=== PATIENT | male | born 1945 | race Caucasian/White ===

== ENCOUNTER 2020-04-05 00:14 | Inpatient (IN) | payer MEDICARE, OTHER ==
[~2020-04-05] VITALS: Ht 175.3 cm; Wt 108.3 kg
[~2020-04-05 00:14] MED LIST: DICL100T PO; FAMO-79 PO; TAMS-11 PO
[2020-04-05] MEDS ORDERED: VANCOMYCIN PER PHARMACY MC PRN (01:00)
[2020-04-05] MEDS ORDERED: ACYCLOVIR 600 MG in SODIUM CHLORIDE 0.9% 250 ML IV ONE (01:00)
[2020-04-05] MEDS ORDERED: CEFTRIAXONE PMX 2GM/50ML 50 ML IV ONE (01:00)
--- NOTE | 2020-04-05 01:11 | NUR ---
PT BIB EMS FROM [facility]. 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 PT WENT HOME AND WAS WITH HIS WHEN HE BECAME ACUTELY ALTERED. TOOK PT TO ED IN [place] AND ONCE THERE HE BECAME CONFUSED, AGITATED AND COMBATIVE. PT IS A0x0. PT HAD FEVER WELL AT [facility] AND WAS GIVEN 650 RECTAL TYLENOL. PT RECEIEVED VERSED, GEODON, KEPPRA, ATIVAN, AND HALEDOL CASH APPLICATIONS SPECIALIST. PT IS CURRENTLY IN 4 PT RESTRAINTS. RESTRAINT PAPERWORK IS BEING FILLED OUT. PT BLOOD FLOW TO EXTREMETIES IS APPROPRIATE. PT IS CONNECTED TO MONITORING EQUIPMENT.
[2020-04-05] MEDS ORDERED: CEFTRIAXONE PMX 2GM/50ML 50 ML ONE (01:16)
[2020-04-05 01:24] LABS: BASOPHILS % (AUTO) 0 % (0-1); EOSINOPHILS % (AUTO) 0 % (1-7); LYMPHOCYTES # (AUTO) 0.95 x10^3/uL (1-3.4); LYMPHOCYTES % (AUTO) 12 % (22-44); MD NO; MEAN CORPUSCULAR HEMOGLOBIN 30.4 pg (27.5-34.5); MEAN CORPUSCULAR HGB CONC 33.6 g/dL (33.2-36.2); MEAN CORPUSCULAR VOLUME 90.6 fL (81-97); MONOCYTES # (AUTO) 0.05 x10^3/uL (0.2-0.8); MONOCYTES % (AUTO) 1 % (2-9); NEUTROPHILS # (AUTO) 6.82 x10^3/uL (1.8-6.8); NEUTROPHILS % (AUTO) 87 % (42-75); PLATELET COUNT 167 x10^3/uL (130-400); RED BLOOD COUNT 4.74 x10^6/uL (4.38-5.82); RED CELL DISTRIBUTION WIDTH 13.8 % (9.4-14.8)
[2020-04-05 01:35] LABS: ALBUMIN 3.7 g/dL (3.4-5.0); ANION GAP 7 mmol/L (5-15); CALCIUM 8.8 mg/dL (8.5-10.1); CHLORIDE 107 mmol/L (98-107); CREATININE 1.07 mg/dL (0.7-1.3)
--- NOTE | 2020-04-05 01:39 | NUR ---
BLOOD CULTURES DRAWN. ABX ADMINSTERED AT THIS TIME
--- NOTE | 2020-04-05 01:43 | NUR ---
PATIENT INTUBATED WITH; 20MG ETOMIDATE, 100MG ROCC. PATIENT TOLERATED WELL. 8.0 26.5@ TEETH. BILATERAL LUNGS SOUNDS NOTED, GOOD COLOR CHANGE ON CO2. PATIENT'S VITAL SIGNS REMAIN STABLE. ADDITIONAL IV'S WILL BE PLACED.
[2020-04-05] MEDS ORDERED: ROCURONIUM 10 MG/ML,10ML IVPush ONE (02:00)
[2020-04-05] MEDS: DEXAMETHASONE 4 MG/ML, 1ML IVPush SCH ×4 (02:00→21:02)
[2020-04-05] MEDS ORDERED: PROPOFOL 100 ML IV PRN (02:00)
[2020-04-05] MEDS ORDERED: ETOMIDATE 20 MG/10 ML IVPush ONE (02:00)
[2020-04-05] MEDS ORDERED: DEXAMETHASONE 4 MG/ML, 1ML ONE (02:05)
[2020-04-05] MEDS: SODIUM CHLORIDE 0.9% 1,000 ML IV SCH ×3 (02:12→18:04)
[2020-04-05] MEDS ORDERED: CEFTRIAXONE 1,000 MG in SODIUM CHLORIDE 0.9% 50 ML IVPB SCH (02:30)
[2020-04-05] MEDS ORDERED: ACETAMINOPHEN 325 MG TABLET PO PRN (02:30)
[2020-04-05] MEDS ORDERED: ONDANSETRON 2MG/ML, 2ML IVPush PRN (02:30)
[2020-04-05] MEDS ORDERED: morphine SULFATE 10 MG/ML, 1ML IVPush PRN (02:30)
[2020-04-05] MEDS ORDERED: VANCOMYCIN PER PHARMACY MC SCH (02:30)
--- NOTE | 2020-04-05 02:50 | NUR ---
PATIENT CONTINUES TO REMAIN HYPERTENSIVE. STARTED NICARDIPINE DRIP PER SEP.
[2020-04-05] MEDS ORDERED: LACTULOSE 20 GM/30 ML UDC NG PRN (03:00)
[2020-04-05] MEDS ORDERED: PHARMACY MAY ADJ FOR RENAL FX MC SCH (03:00)
[2020-04-05] MEDS ORDERED: LIDOCAINE-MPF 1%, 2ML ENDO PRN (03:00)
--- NOTE | 2020-04-05 03:05 | NUR ---
PATIENT NOT TOLERATING PROPROFOL DECREASE IN RATE. INCREASED RATE TO IMPROVE PATIENT SEDATION OUTCOMES.
[2020-04-05] MEDS ORDERED: PHARMACOKINETIC MONITORING MC PRN (04:00)
[2020-04-05] MEDS ORDERED: VANCOMYCIN 2,500 MG in SODIUM CHLORIDE 0.9% 500 ML IV ONE (04:00)
[2020-04-05 04:15] VITALS: BP 161/89
[2020-04-05] MEDS: FAMOTIDINE 20 MG/2 ML IV SCH ×2 (04:46→14:56)
[2020-04-05] MEDS: LEVETIRACETAM 500 MG in SODIUM CHLORIDE 0.9% 100 ML IV SCH ×2 (04:46→16:24)
[2020-04-05 05:21] VITALS: BP 161/89
[2020-04-05] MEDS: PROPOFOL 100 ML IV PRN ×4 (07:15→21:14)
[2020-04-05] MEDS: ENOXAPARIN 40 MG/0.4 ML SQ SCH (07:28)
[2020-04-05] MEDS ORDERED: PROPOFOL 10 MG/ML, 100ML IV ONE (08:00)
[2020-04-05] MEDS ORDERED: ROCURONIUM 10 MG/ML,10ML ONE (08:00)
[2020-04-05] MEDS ORDERED: ETOMIDATE 20 MG/10 ML ONE (08:00)
[2020-04-05] MEDS: ACYCLOVIR IV SCH ×2 (10:51→18:04)
[2020-04-05] MEDS: SODIUM CHLORIDE 0.9% IV SCH ×2 (10:51→18:04)
[2020-04-05] MEDS ORDERED: GADOTERATE 10 MMOL/20 ML SYR ONE (12:54)
[2020-04-05] MEDS: VANCOMYCIN 2,200 MG in SODIUM CHLORIDE 0.9% 500 ML IV SCH (22:55)
[2020-04-06] MEDS: CEFTRIAXONE PMX 1GM/50ML 50 ML IV SCH (01:54)
[2020-04-06] MEDS: DEXAMETHASONE 4 MG/ML, 1ML IVPush SCH ×4 (02:07→20:09)
[2020-04-06] MEDS: SODIUM CHLORIDE 0.9% 1,000 ML IV SCH ×3 (02:08→17:27)
[2020-04-06] MEDS: SODIUM CHLORIDE 0.9% IV SCH ×3 (02:08→17:44)
[2020-04-06] MEDS: ACYCLOVIR IV SCH ×3 (02:08→17:44)
[2020-04-06] MEDS: PROPOFOL 100 ML IV PRN ×7 (03:14→23:59)
[2020-04-06] MEDS: FAMOTIDINE 20 MG/2 ML IV SCH ×2 (03:14→17:21)
[2020-04-06 04:00] VITALS: BP 104/59
[2020-04-06] MEDS: LEVETIRACETAM 500 MG in SODIUM CHLORIDE 0.9% 100 ML IV SCH ×2 (04:47→17:20)
[2020-04-06 05:53] LABS: BASOPHILS # (AUTO) 0.01 x10^3/uL (0-0.1); BASOPHILS % (AUTO) 0 % (0-1); EOSINOPHILS # (AUTO) 0.01 x10^3/uL (0-0.4); EOSINOPHILS % (AUTO) 0 % (1-7); LYMPHOCYTES # (AUTO) 0.94 x10^3/uL (1-3.4); LYMPHOCYTES % (AUTO) 9 % (22-44); MD NO; MEAN CORPUSCULAR HEMOGLOBIN 30.4 pg (27.5-34.5); MEAN CORPUSCULAR HGB CONC 33.1 g/dL (33.2-36.2); MEAN PLATELET VOLUME 10.4 fL (7.4-10.4); MONOCYTES # (AUTO) 0.27 x10^3/uL (0.2-0.8); MONOCYTES % (AUTO) 3 % (2-9); NEUTROPHILS # (AUTO) 8.87 x10^3/uL (1.8-6.8); NEUTROPHILS % (AUTO) 88 % (42-75); PLATELET COUNT 161 x10^3/uL (130-400); RED BLOOD COUNT 3.88 x10^6/uL (4.38-5.82); RED CELL DISTRIBUTION WIDTH 13.9 % (9.4-14.8)
[2020-04-06 06:00] LABS: CHLORIDE 116 mmol/L (98-107)
[2020-04-06 06:11] LABS: ANION GAP 6 mmol/L (5-15); CALCIUM 7.8 mg/dL (8.5-10.1); CREATININE 0.98 mg/dL (0.7-1.3)
[2020-04-06] MEDS: FENTANYL PF 100 MCG/2ML IVPush PRN ×5 (08:01→20:09)
[2020-04-06] MEDS: ENOXAPARIN 40 MG/0.4 ML SQ SCH (10:13)
[2020-04-06] MEDS: VANCOMYCIN 2,200 MG in SODIUM CHLORIDE 0.9% 500 ML IV SCH (22:50)
[2020-04-07] MEDS: FENTANYL PF 100 MCG/2ML IVPush PRN ×4 (00:01→07:42)
[2020-04-07] MEDS: SODIUM CHLORIDE 0.9% 1,000 ML IV SCH ×3 (01:45→23:42)
[2020-04-07] MEDS: CEFTRIAXONE PMX 1GM/50ML 50 ML IV SCH (01:45)
[2020-04-07] MEDS: DEXAMETHASONE 4 MG/ML, 1ML IVPush SCH ×4 (03:23→20:00)
[2020-04-07] MEDS: ACYCLOVIR IV SCH ×2 (04:09→10:00)
[2020-04-07] MEDS: SODIUM CHLORIDE 0.9% IV SCH ×2 (04:09→10:00)
[2020-04-07 04:11] VITALS: BP 107/59
[2020-04-07 04:21] LABS: BASOPHILS % (AUTO) 0 % (0-1); EOSINOPHILS % (AUTO) 0 % (1-7); LYMPHOCYTES # (AUTO) 1.18 x10^3/uL (1-3.4); LYMPHOCYTES % (AUTO) 13 % (22-44); MD NO; MEAN CORPUSCULAR HGB CONC 32.6 g/dL (33.2-36.2); MEAN CORPUSCULAR VOLUME 92.2 fL (81-97); MEAN PLATELET VOLUME 9.5 fL (7.4-10.4); MONOCYTES # (AUTO) 0.19 x10^3/uL (0.2-0.8); MONOCYTES % (AUTO) 2 % (2-9); NEUTROPHILS # (AUTO) 7.72 x10^3/uL (1.8-6.8); NEUTROPHILS % (AUTO) 85 % (42-75); PLATELET COUNT 142 x10^3/uL (130-400); RED BLOOD COUNT 3.93 x10^6/uL (4.38-5.82)
[2020-04-07 04:32] LABS: INTERNATIONAL NORMALIZED RATIO 1.01 (0.93-1.1); PROTHROMBIN TIME 10.4 Seconds (9.6-11.5)
[2020-04-07] MEDS: PROPOFOL 100 ML IV PRN ×5 (05:41→19:59)
[2020-04-07] MEDS: FAMOTIDINE 20 MG/2 ML IV SCH ×2 (05:41→14:44)
[2020-04-07] MEDS: LEVETIRACETAM 500 MG in SODIUM CHLORIDE 0.9% 100 ML IV SCH ×2 (05:42→16:26)
[2020-04-07 07:50] LABS: ANION GAP 5 mmol/L (5-15); CHLORIDE 116 mmol/L (98-107); CREATININE 0.89 mg/dL (0.7-1.3)
[2020-04-07] MEDS ORDERED: MIDAZOLAM 1 MG/ML, 5ML ONE ×2 (08:18→15:06)
[2020-04-07] MEDS ORDERED: MIDAZOLAM 1 MG/ML, 5ML IVPush ONE ×2 (08:30→15:30)
[2020-04-07] MEDS: FENTANYL PF 1,000 MCG in SODIUM CHLORIDE 0.9% 80 ML IV PRN ×2 (09:59→22:30)
[2020-04-07] MEDS ORDERED: THROMBIN 20,000 UNIT VIAL TP ONE (10:41)
[2020-04-07] MEDS ORDERED: BACITRACIN OINT 500U/GM, 15 GM ONE (10:41)
[2020-04-07] MEDS ORDERED: BUPIVACAINE/EPI 0.5% 1:200K ONE (10:41)
[2020-04-07] MEDS ORDERED: BACITRACIN 50,000 UNIT ONE (10:41)
[2020-04-07] MEDS ORDERED: FENTANYL PF 250 MCG/5ML ONE (11:05)
[2020-04-07] MEDS ORDERED: MANNITOL PMX 20% 500 ML ONE (11:07)
[2020-04-07] MEDS ORDERED: FUROSEMIDE 20 MG/2 ML ONE (11:07)
[2020-04-07] MEDS ORDERED: CEFAZOLIN 1,000 MG ONE (11:28)
[2020-04-07] MEDS ORDERED: GLYCOPYRROLATE 0.2MG/1ML, 5ML ONE (11:28)
[2020-04-07] MEDS ORDERED: ROCURONIUM 10MG/ML,5ML ONE (11:28)
[2020-04-07] MEDS ORDERED: PROPOFOL 10 MG/ML, 20ML ONE (11:28)
[2020-04-07] MEDS ORDERED: CEFAZOLIN 1,000 MG IM SCH (14:30)
[2020-04-07] MEDS ORDERED: CEFAZOLIN PMX 1GM/50ML 50 ML IV SCH (14:30)
[2020-04-07] MEDS ORDERED: VANCOMYCIN PER PHARMACY MC PRN (18:00)
[2020-04-07] MEDS ORDERED: VANCOMYCIN 2,200 MG in SODIUM CHLORIDE 0.9% 500 ML IV SCH (22:00)
[2020-04-08] MEDS: PROPOFOL 100 ML IV PRN ×3 (00:37→07:52)
[2020-04-08] MEDS: DEXAMETHASONE 4 MG/ML, 1ML IVPush SCH ×5 (02:12→20:12)
[2020-04-08] MEDS: FAMOTIDINE 20 MG/2 ML IV SCH ×2 (02:12→16:26)
[2020-04-08] MEDS: CEFTRIAXONE PMX 1GM/50ML 50 ML IV SCH (02:22)
[2020-04-08 04:00] VITALS: BP 98/48
[2020-04-08] MEDS: LEVETIRACETAM 500 MG in SODIUM CHLORIDE 0.9% 100 ML IV SCH ×2 (04:01→16:26)
[2020-04-08 04:58] LABS: BASOPHILS # (AUTO) 0.01 x10^3/uL (0-0.1); BASOPHILS % (AUTO) 0 % (0-1); EOSINOPHILS # (AUTO) 0.01 x10^3/uL (0-0.4); EOSINOPHILS % (AUTO) 0 % (1-7); LYMPHOCYTES # (AUTO) 1.06 x10^3/uL (1-3.4); LYMPHOCYTES % (AUTO) 16 % (22-44); MD NO; MEAN CORPUSCULAR HEMOGLOBIN 29.8 pg (27.5-34.5); MEAN CORPUSCULAR HGB CONC 32.1 g/dL (33.2-36.2); MEAN CORPUSCULAR VOLUME 92.8 fL (81-97); MEAN PLATELET VOLUME 9.9 fL (7.4-10.4); MONOCYTES # (AUTO) 0.41 x10^3/uL (0.2-0.8); MONOCYTES % (AUTO) 6 % (2-9); NEUTROPHILS # (AUTO) 5.29 x10^3/uL (1.8-6.8); NEUTROPHILS % (AUTO) 78 % (42-75); PLATELET COUNT 123 x10^3/uL (130-400); RED BLOOD COUNT 3.88 x10^6/uL (4.38-5.82); RED CELL DISTRIBUTION WIDTH 13.8 % (9.4-14.8)
[2020-04-08 05:07] LABS: ANION GAP 5 mmol/L (5-15); CALCIUM 7.7 mg/dL (8.5-10.1); CHLORIDE 118 mmol/L (98-107); CREATININE 0.73 mg/dL (0.7-1.3)
[2020-04-08] MEDS: SODIUM CHLORIDE 0.9% 1,000 ML IV SCH ×2 (07:52→15:54)
[2020-04-08] MEDS: ZIPRASIDONE 20 MG INJ IM PRN (11:00)
[2020-04-08] MEDS: MORPHINE SULFATE 4 MG/ML, 1ML IVPush PRN ×2 (12:29→21:46)
[2020-04-08] MEDS: FENTANYL PF 100 MCG/2ML IVPush PRN (13:20)
[2020-04-08] MEDS: DEXMEDETOMIDINE 200 MCG in SODIUM CHLORIDE 0.9% 48 ML IV PRN ×2 (14:06→15:20)
[2020-04-08] MEDS ORDERED: VANCOMYCIN 2,200 MG in SODIUM CHLORIDE 0.9% 500 ML IV SCH (16:00)
[2020-04-08] MEDS: DEXMEDETOMIDINE 400 MCG in SODIUM CHLORIDE 0.9% 96 ML IV PRN ×3 (17:00→22:26)
[2020-04-08] MEDS: hydrALAzine 20 MG/ML, 1ML IVPush PRN ×2 (18:04→21:52)
[2020-04-09] MEDS: MORPHINE SULFATE 4 MG/ML, 1ML IVPush PRN (00:08)
[2020-04-09] MEDS: DEXMEDETOMIDINE 400 MCG in SODIUM CHLORIDE 0.9% 96 ML IV PRN ×8 (00:47→23:00)
[2020-04-09] MEDS ORDERED: ENALAPRILAT 1.25 MG/ML, 2ML IV PRN (01:00)
[2020-04-09] MEDS: CEFTRIAXONE PMX 1GM/50ML 50 ML IV SCH (01:43)
[2020-04-09] MEDS: DEXAMETHASONE 4 MG/ML, 1ML IVPush SCH ×4 (01:47→20:11)
[2020-04-09] MEDS ORDERED: SODIUM CHLORIDE 0.9% 1,000 ML IV SCH (02:12)
[2020-04-09 04:00] VITALS: BP 170/88
[2020-04-09] MEDS: LEVETIRACETAM 500 MG in SODIUM CHLORIDE 0.9% 100 ML IV SCH ×2 (04:42→15:51)
[2020-04-09] MEDS: FAMOTIDINE 20 MG/2 ML IV SCH ×2 (04:42→15:49)
[2020-04-09 04:48] LABS: BASOPHILS % (AUTO) 0 % (0-1); EOSINOPHILS # (AUTO) 0.01 x10^3/uL (0-0.4); EOSINOPHILS % (AUTO) 0 % (1-7); LYMPHOCYTES # (AUTO) 0.98 x10^3/uL (1-3.4); LYMPHOCYTES % (AUTO) 11 % (22-44); MD NO; MEAN CORPUSCULAR HEMOGLOBIN 30.4 pg (27.5-34.5); MEAN CORPUSCULAR HGB CONC 33.1 g/dL (33.2-36.2); MEAN CORPUSCULAR VOLUME 91.9 fL (81-97); MEAN PLATELET VOLUME 9.6 fL (7.4-10.4); MONOCYTES # (AUTO) 0.35 x10^3/uL (0.2-0.8); MONOCYTES % (AUTO) 4 % (2-9); NEUTROPHILS % (AUTO) 85 % (42-75); PLATELET COUNT 143 x10^3/uL (130-400); RED BLOOD COUNT 4.67 x10^6/uL (4.38-5.82); RED CELL DISTRIBUTION WIDTH 13.4 % (9.4-14.8)
[2020-04-09] MEDS: hydrALAzine 20 MG/ML, 1ML IVPush PRN (05:25)
[2020-04-09] MEDS: MIDAZOLAM HCL 50 MG in SODIUM CHLORIDE 0.9% 40 ML IV PRN ×2 (08:44→17:40)
[2020-04-09] MEDS: ZIPRASIDONE 20 MG INJ IM PRN (20:20)
[2020-04-10] MEDS: MORPHINE SULFATE 4 MG/ML, 1ML IVPush PRN ×2 (00:57→15:10)
[2020-04-10] MEDS: DEXAMETHASONE 4 MG/ML, 1ML IVPush SCH ×4 (01:56→22:21)
[2020-04-10] MEDS: DEXMEDETOMIDINE 400 MCG in SODIUM CHLORIDE 0.9% 96 ML IV PRN ×2 (02:27→06:26)
[2020-04-10 04:00] VITALS: BP 165/82
[2020-04-10] MEDS: FAMOTIDINE 20 MG/2 ML IV SCH (04:03)
[2020-04-10] MEDS: LEVETIRACETAM 500 MG in SODIUM CHLORIDE 0.9% 100 ML IV SCH (04:10)
[2020-04-10] MEDS ORDERED: MIDAZOLAM HCL 50 MG in SODIUM CHLORIDE 0.9% 40 ML IV SCH ×2 (08:00→10:00)
[2020-04-10] MEDS ORDERED: MIDAZOLAM HCL 50 MG in SODIUM CHLORIDE 0.9% 40 ML IV PRN (08:30)
[2020-04-10] MEDS: ZIPRASIDONE 20 MG INJ IM PRN ×2 (08:49→16:47)
[2020-04-10] MEDS ORDERED: MIDAZOLAM 100MG/100ML NS IV SCH (09:30)
[2020-04-10] MEDS ORDERED: MIDAZOLAM IN 0.9 % SOD.CHLORID 100 ML IV SCH (10:00)
[2020-04-10] MEDS: HEPARIN 5,000 UNITS/ML, 1ML SQ SCH ×2 (11:26→20:19)
[2020-04-10] MEDS: hydrALAzine 20 MG/ML, 1ML IVPush PRN (12:10)
[2020-04-10] MEDS: LORazepam 2 MG/ML, 1ML IVPush PRN ×3 (12:49→21:49)
[2020-04-10] MEDS: DIVALPROEX 125 MG CAP.SPRINK PO SCH ×3 (12:53→22:22)
[2020-04-10] MEDS: QUETIAPINE 25MG TABLET PO SCH ×3 (12:55→22:21)
--- NOTE | 2020-04-10 13:30 | NUR ---
04/10 TF goal if needed: PROMOTE @ 85ML/HR
[2020-04-10] MEDS: DIPHENHYDRAMINE 50 MG/ML, 1ML IVPush PRN (13:48)
[2020-04-10 15:07] VITALS: BP 155/102
[2020-04-10 19:13] VITALS: BP 110/63
[2020-04-11 01:47] VITALS: BP 138/80
[2020-04-11] MEDS: TRAZODONE 50MG TABLET PO PRN (02:06)
[2020-04-11] MEDS: LORazepam 2 MG/ML, 1ML IVPush PRN ×4 (03:43→23:48)
[2020-04-11] MEDS: HEPARIN 5,000 UNITS/ML, 1ML SQ SCH ×3 (03:43→20:46)
[2020-04-11 07:14] VITALS: BP 159/86
[2020-04-11] MEDS: DEXAMETHASONE 4 MG/ML, 1ML IVPush SCH ×2 (09:42→21:15)
[2020-04-11] MEDS: QUETIAPINE 25MG TABLET PO SCH ×3 (09:42→21:15)
[2020-04-11] MEDS: VALPROATE SODIUM 250 MG/5 ML UDC PO SCH ×3 (11:35→21:15)
[2020-04-11 13:52] VITALS: BP 169/87
[2020-04-11 15:06] LABS: ANION GAP 6 mmol/L (5-15); CALCIUM 8.1 mg/dL (8.5-10.1); CHLORIDE 110 mmol/L (98-107); CREATININE 0.81 mg/dL (0.7-1.3)
[2020-04-11 19:08] VITALS: BP 140/80
[2020-04-12 01:46] VITALS: BP 160/83
[2020-04-12] MEDS: HEPARIN 5,000 UNITS/ML, 1ML SQ SCH ×3 (04:02→20:10)
[2020-04-12 05:06] LABS: BASOPHILS # (AUTO) 0.01 x10^3/uL (0-0.1); BASOPHILS % (AUTO) 0 % (0-1); EOSINOPHILS # (AUTO) 0.03 x10^3/uL (0-0.4); EOSINOPHILS % (AUTO) 0 % (1-7); LYMPHOCYTES # (AUTO) 1.22 x10^3/uL (1-3.4); LYMPHOCYTES % (AUTO) 14 % (22-44); MD NO; MEAN CORPUSCULAR HEMOGLOBIN 30.7 pg (27.5-34.5); MEAN CORPUSCULAR HGB CONC 33.5 g/dL (33.2-36.2); MEAN CORPUSCULAR VOLUME 91.7 fL (81-97); MONOCYTES # (AUTO) 0.65 x10^3/uL (0.2-0.8); MONOCYTES % (AUTO) 7 % (2-9); NEUTROPHILS # (AUTO) 6.91 x10^3/uL (1.8-6.8); NEUTROPHILS % (AUTO) 78 % (42-75); PLATELET COUNT 152 x10^3/uL (130-400); RED BLOOD COUNT 4.71 x10^6/uL (4.38-5.82); RED CELL DISTRIBUTION WIDTH 14.1 % (9.4-14.8)
[2020-04-12 05:16] LABS: ANION GAP 4 mmol/L (5-15); CALCIUM 8.3 mg/dL (8.5-10.1); CHLORIDE 107 mmol/L (98-107); CREATININE 0.87 mg/dL (0.7-1.3)
[2020-04-12] MEDS: LORazepam 2 MG/ML, 1ML IVPush PRN ×4 (06:31→20:03)
[2020-04-12 08:18] VITALS: BP 160/83
[2020-04-12] MEDS: TAMSULOSIN 0.4 MG CAP.ER.24H PO SCH (09:00)
[2020-04-12] MEDS: VALPROATE SODIUM 250 MG/5 ML UDC PO SCH ×3 (09:05→20:31)
[2020-04-12] MEDS: DEXAMETHASONE 4 MG/ML, 1ML IVPush SCH ×2 (09:06→20:32)
[2020-04-12] MEDS: QUETIAPINE 25MG TABLET PO SCH ×3 (09:06→20:32)
[2020-04-12] MEDS: DIPHENHYDRAMINE 50 MG/ML, 1ML IVPush PRN (12:19)
[2020-04-12 13:00] VITALS: BP 152/96
[2020-04-12 14:26] VITALS: BP 156/92
[2020-04-12] MEDS ORDERED: DEXAMETHASONE 4 MG/ML, 1ML IVPush SCH (16:30)
[2020-04-12] MEDS ORDERED: DEXAMETHASONE 1 MG TABLET PO SCH (17:00)
[2020-04-12 18:43] VITALS: BP 159/90
[2020-04-13 01:41] VITALS: BP 141/84
[2020-04-13] MEDS: LORazepam 2 MG/ML, 1ML IVPush PRN ×6 (01:43→22:06)
[2020-04-13] MEDS: HEPARIN 5,000 UNITS/ML, 1ML SQ SCH ×3 (03:32→23:43)
[2020-04-13 05:07] LABS: CHLORIDE 103 mmol/L (98-107)
[2020-04-13 05:16] LABS: ANION GAP 8 mmol/L (5-15); CALCIUM 8.6 mg/dL (8.5-10.1); CREATININE 0.83 mg/dL (0.7-1.3)
[2020-04-13 05:17] LABS: BASOPHILS # (AUTO) 0.03 x10^3/uL (0-0.1); BASOPHILS % (AUTO) 0 % (0-1); EOSINOPHILS # (AUTO) 0.06 x10^3/uL (0-0.4); EOSINOPHILS % (AUTO) 1 % (1-7); LYMPHOCYTES # (AUTO) 1.65 x10^3/uL (1-3.4); LYMPHOCYTES % (AUTO) 14 % (22-44); MD NO; MEAN CORPUSCULAR HEMOGLOBIN 30.1 pg (27.5-34.5); MEAN CORPUSCULAR HGB CONC 32.6 g/dL (33.2-36.2); MEAN CORPUSCULAR VOLUME 92.4 fL (81-97); MEAN PLATELET VOLUME 9.3 fL (7.4-10.4); MONOCYTES # (AUTO) 0.91 x10^3/uL (0.2-0.8); MONOCYTES % (AUTO) 8 % (2-9); NEUTROPHILS # (AUTO) 9.26 x10^3/uL (1.8-6.8); NEUTROPHILS % (AUTO) 78 % (42-75); PLATELET COUNT 160 x10^3/uL (130-400); RED BLOOD COUNT 5.11 x10^6/uL (4.38-5.82)
[2020-04-13 07:50] VITALS: BP 166/82
[2020-04-13] MEDS: DEXAMETHASONE 4 MG/ML, 1ML IVPush SCH ×2 (08:48→21:17)
[2020-04-13] MEDS: VALPROATE SODIUM 250 MG/5 ML UDC PO SCH ×3 (08:48→21:18)
[2020-04-13] MEDS: QUETIAPINE 25MG TABLET PO SCH ×3 (08:48→21:17)
[2020-04-13] MEDS: TAMSULOSIN 0.4 MG CAP.ER.24H PO SCH (08:48)
[2020-04-13] MEDS: ZIPRASIDONE 20 MG INJ IM PRN (11:50)
[2020-04-13 13:49] VITALS: BP 106/71
[2020-04-13 19:06] VITALS: BP 125/78
[2020-04-13] MEDS: DIPHENHYDRAMINE 50 MG/ML, 1ML IVPush PRN (23:42)
[2020-04-14 00:36] VITALS: BP 149/93
[2020-04-14] MEDS: LORazepam 2 MG/ML, 1ML IVPush PRN ×4 (02:21→23:58)
[2020-04-14] MEDS: ZIPRASIDONE 20 MG INJ IM PRN (02:58)
[2020-04-14] MEDS: DIPHENHYDRAMINE 50 MG/ML, 1ML IVPush PRN ×3 (03:44→20:33)
[2020-04-14 05:12] LABS: ANION GAP 9 mmol/L (5-15); CHLORIDE 106 mmol/L (98-107); CREATININE 0.83 mg/dL (0.7-1.3)
[2020-04-14 08:06] VITALS: BP 143/79
[2020-04-14] MEDS: VALPROATE SODIUM 250 MG/5 ML UDC PO SCH ×2 (08:20→15:39)
[2020-04-14] MEDS: QUETIAPINE 25MG TABLET PO SCH ×2 (08:20→15:39)
[2020-04-14] MEDS: MAGNESIUM HYDROXIDE 8%, 30ML UDC PO SCH (08:20)
[2020-04-14] MEDS: DEXAMETHASONE 4 MG/ML, 1ML IVPush SCH (08:21)
[2020-04-14] MEDS: HEPARIN 5,000 UNITS/ML, 1ML SQ SCH ×2 (08:21→15:39)
[2020-04-14] MEDS: TAMSULOSIN 0.4 MG CAP.ER.24H PO SCH (08:24)
[2020-04-14 14:48] VITALS: BP 145/78
[2020-04-14 18:26] VITALS: BP 131/79
[2020-04-14 20:00] VITALS: BP 131/79
[2020-04-14] MEDS ORDERED: DEXAMETHASONE 1 MG TABLET PO SCH (21:00)
[2020-04-15] MEDS: TRAZODONE 50MG TABLET PO PRN ×2 (00:11→20:14)
[2020-04-15] MEDS: DOCUSATE 100 MG CAPSULE PO PRN ×2 (00:11→09:48)
[2020-04-15] MEDS: DIPHENHYDRAMINE 50 MG/ML, 1ML IVPush PRN (03:55)
[2020-04-15] MEDS: LORazepam 2 MG/ML, 1ML IVPush PRN (05:09)
[2020-04-15 06:01] LABS: CHLORIDE 107 mmol/L (98-107)
[2020-04-15 06:09] LABS: ANION GAP 8 mmol/L (5-15); CALCIUM 8.8 mg/dL (8.5-10.1); CREATININE 0.89 mg/dL (0.7-1.3)
[2020-04-15 06:17] VITALS: BP 158/75
[2020-04-15] MEDS: DIPHENHYDRAMINE 50 MG/ML, 1ML IVPush SCH ×3 (09:40→21:29)
[2020-04-15] MEDS: MAGNESIUM HYDROXIDE 8%, 30ML UDC PO SCH ×2 (09:48→09:51)
[2020-04-15] MEDS: LORazepam 2 MG/ML, 1ML IVPush SCH ×3 (10:13→22:48)
[2020-04-15] MEDS: HALOPERIDOL 5 MG/ML IM PRN (11:15)
[2020-04-15] MEDS: BISACODYL 10 MG SUPP PR PRN (11:16)
[2020-04-15 12:48] VITALS: BP 151/89
[2020-04-15 18:33] VITALS: BP 118/64
[2020-04-16 04:04] VITALS: BP 95/48
[2020-04-16] MEDS: DIPHENHYDRAMINE 50 MG/ML, 1ML IVPush SCH ×2 (04:21→10:10)
[2020-04-16 04:27] VITALS: BP 121/76
[2020-04-16] MEDS: LORazepam 2 MG/ML, 1ML IVPush SCH ×2 (05:19→10:10)
[2020-04-16 06:40] VITALS: BP 128/73
[2020-04-16 07:37] LABS: ANION GAP 7 mmol/L (5-15); CALCIUM 8.7 mg/dL (8.5-10.1); CHLORIDE 104 mmol/L (98-107)
[2020-04-16 07:39] LABS: CREATININE 0.97 mg/dL (0.7-1.3)
[2020-04-16] MEDS: MAGNESIUM HYDROXIDE 8%, 30ML UDC PO SCH (10:10)
[2020-04-16 12:10] VITALS: BP 117/69
[2020-04-16] MEDS ORDERED: LORazepam 2 MG/ML, 1ML IM PRN (14:30)
[2020-04-16] MEDS ORDERED: DIPHENHYDRAMINE 50 MG/ML, 1ML IVPush PRN (15:30)
[2020-04-16] MEDS: DIPHENHYDRAMINE 12.5MG/5ML, 10ML UDC PO SCH ×2 (15:30→22:04)
[2020-04-16] MEDS ORDERED: LORazepam 2 MG/ML, 1ML IVPush PRN (15:30)
[2020-04-16] MEDS: LORazepam INTENSOL 2 MG/ML PO SCH ×2 (16:16→22:03)
[2020-04-16 18:08] VITALS: BP 99/64
[2020-04-16 18:43] VITALS: BP 114/56
[2020-04-16] MEDS: HALOPERIDOL 5 MG/ML IM PRN (19:36)
[2020-04-17 01:05] VITALS: BP 109/60
[2020-04-17] MEDS: DIPHENHYDRAMINE 12.5MG/5ML, 10ML UDC PO SCH ×4 (04:19→22:00)
[2020-04-17] MEDS: LORazepam INTENSOL 2 MG/ML PO SCH ×4 (04:19→22:00)
[2020-04-17 08:08] VITALS: BP 104/73
[2020-04-17] MEDS: MAGNESIUM HYDROXIDE 8%, 30ML UDC PO SCH (10:32)
[2020-04-17] MEDS: HALOPERIDOL 5 MG/ML IM PRN (11:59)
[2020-04-17 12:22] VITALS: BP 134/78
[2020-04-17] MEDS: morphine SULFATE ORAL.CONC 20 MG/ML PO PRN (17:57)
[2020-04-17 18:57] VITALS: BP 143/73
[2020-04-18 02:59] VITALS: BP 142/83
[2020-04-18] MEDS: LORazepam INTENSOL 2 MG/ML PO SCH ×5 (03:05→20:57)
[2020-04-18] MEDS: DIPHENHYDRAMINE 12.5MG/5ML, 10ML UDC PO SCH ×6 (03:06→21:07)
[2020-04-18] MEDS: HALOPERIDOL 5 MG/ML IM PRN (05:46)
[2020-04-18] MEDS: morphine SULFATE ORAL.CONC 20 MG/ML PO PRN ×3 (08:02→20:57)
[2020-04-18] MEDS: MAGNESIUM HYDROXIDE 8%, 30ML UDC PO SCH (08:03)
[2020-04-18 08:10] VITALS: BP 138/69
[2020-04-18 15:17] VITALS: BP 121/46
[2020-04-18 18:57] VITALS: BP 132/69
[2020-04-18] MEDS: BISACODYL 10 MG SUPP PR PRN (21:50)
[2020-04-19 00:37] VITALS: BP 97/57
[2020-04-19] MEDS: LORazepam INTENSOL 2 MG/ML PO SCH ×2 (02:59→08:09)
[2020-04-19] MEDS: DIPHENHYDRAMINE 12.5MG/5ML, 10ML UDC PO SCH ×2 (02:59→08:09)
[2020-04-19] MEDS: morphine SULFATE ORAL.CONC 20 MG/ML PO PRN ×3 (02:59→11:32)
[2020-04-19 06:22] VITALS: BP 134/44
[2020-04-19] MEDS: MAGNESIUM HYDROXIDE 8%, 30ML UDC PO SCH (08:00)
[2020-04-19] MEDS ORDERED: LORazepam 2 MG/ML, 1ML IM ONE (11:30)
== END 2020-04-19 12:01 | disposition hospice, home (50) | DRG 25 ==
LOC: ED 02:14 → EDIP 03:32 → CCU 03:33 → 4NW 04-10 14:50
PROVIDERS: ADMIT Student in an Organized Health Care Education/Training Program; ATTEND Internal Medicine
PROC: 5A1945Z Respiratory Ventilation, 24-96 Consecutive Hours (ICD-10-PCS; principal; 2020-04-05)
PROC: 0BH18EZ Insertion of Endotracheal Airway into Trachea, Via Natural or Artificial Opening Endoscopic (ICD-10-PCS; 2020-04-05)
PROC: 00B03ZX Excision of Brain, Percutaneous Approach, Diagnostic (ICD-10-PCS; 2020-04-07)
DX: C71.9 Malignant neoplasm of brain, unspecified (principal); G93.6 Cerebral edema; J96.01 Acute respiratory failure with hypoxia; G93.41 Metabolic encephalopathy; I16.1 Hypertensive emergency; C50.929 Malignant neoplasm of unspecified site of unspecified male breast; Z66 Do not resuscitate; Z51.5 Encounter for palliative care; G47.33 Obstructive sleep apnea (adult) (pediatric); G89.4 Chronic pain syndrome; N40.0 Benign prostatic hyperplasia without lower urinary tract symptoms; F91.9 Conduct disorder, unspecified; Z20.828 Contact with and (suspected) exposure to other viral communicable diseases; E66.9 Obesity, unspecified; Z87.891 Personal history of nicotine dependence; Z79.899 Other long term (current) drug therapy; Z85.841 Personal history of malignant neoplasm of brain; Z78.1 Physical restraint status; Z68.35 Body mass index [BMI] 35.0-35.9, adult
CPT/HCPCS: 31500; 36415; 36600; 51702; 70450; 70552; 70553; 71045; 74018; 80048; 80202; 82040; 82140; 82607; 82803; 83735; 84100; 84443; 84478; 85025; 85610; 85730; 86592; 87040; 87070; 87081; 87205; 87635; 88307; 88331; 93005; 93306; 94002; 94003; 99291; C1713; G0378; J0133; J0690; J0696; J1100; J1644; J1650; J1953; J2250; J2405; J2704; J3010; J3370; J3486; A4648; A9575; J0360; J1200; J1630; J1940; J2060; J2270; J3490; J7030; J7040; J7050